=== PATIENT | male | born 1950 | race Caucasian/White ===

== ENCOUNTER 2017-02-10 16:33 | Emergency (ER) | payer OTHER ==
[2017-02-10 17:31] VITALS: RESP 20; TEMP 98.4
[2017-02-10 17:49] VITALS: BP 143/73; PULSE 62; O2SAT 92
== END 2017-02-10 17:40 | disposition home or self-care (01) | DRG 57 ==
LOC: ED 16:33
DX: G25.81 Restless legs syndrome (principal)
CPT/HCPCS: 99282